=== PATIENT | female | born 1975 | race Caucasian/White ===

== ENCOUNTER 2020-04-27 19:29 | Emergency (ER) | payer BC ==
--- NOTE | 2020-04-27 19:46 | EDM.PDOC ---
ED HPI GENERAL MEDICAL PROBLEM - General Chief Complaint: Cardiovascular Problem Stated Complaint: TACHYCARDIA Time Seen by Provider: 04/27/20 19:46 Source of Information: Reports: Patient History Limitations: Reports: No Limitations - History of Present Illness INITIAL COMMENTS - FREE TEXT/NARRATIVE: Experience today normal day when you and forego than coming home relaxing. Watching a movie when noticed tachycardia/palpitations. Her states he could see it pulsating in her neck. Denies any chest pain or significant shortness of breath with this but felt pressure sensation. In review of [place] chart it is found only medication of current list on her last visit that she is currently taking is losartan hydrochlorothiazide 50/12.5 , 1/2 tablet daily. Lexapro has been discontinued as well as phentermine, states she has Xanax at home but has not used it. Also denies taking her calcium carbonate vitamin D in her multivitamin. Is noted abnormal TSH and elevated free T3 last August with no repeat on those tests found. Onset: Today, Sudden Duration: Minutes: Location: Reports: Chest Quality: Reports: Pressure Severity: Moderate Improves with: Reports: None Worsens with: Reports: None Associated Symptoms: Reports: No Other Symptoms Chest Pain Score (Numeric/FACES): 2 - Related Data Allergies Allergy/AdvReac Type Severity Reaction Status Date / Time No Known Drug Allergies Allergy Cannot Verified 04/27/20 19:43 Remember Home Meds: Home Meds Losartan/Hydrochlorothiazide [Losartan-HCTZ 50-12.5 MG] 1 tab PO DAILY 04/27/20 [History] Potassium Chloride 20 meq PO DAILY 30 Days #30 tablet.er 04/27/20 [Rx] Past Medical History HEENT History: Reports: None Cardiovascular History: Reports: Hypertension Respiratory History: Reports: None Gastrointestinal History: Reports: None Genitourinary History: Reports: None [employer]OR [employer] History: Reports: Endometrial Ablation Musculoskeletal History: Reports: None Psychiatric History: Reports: Anxiety Endocrine/Metabolic History: Reports: Hyperthyroidism Dermatologic History: Reports: None - Past Surgical History Female Surgical History: Reports: D&C Social & Family History - Family History Family Medical History: Noncontributory - Tobacco Use Smoking Status *Q: Never Smoker - Caffeine Use Caffeine Use: Reports: Soda - Alcohol Use Alcohol Use History: Yes Alcohol Use in Last Twelve Months: Yes ED ROS GENERAL - Review of Systems Review Of Systems: Comprehensive ROS is negative, except as noted in HPI. Constitutional: Reports: No Symptoms HEENT: Reports: No Symptoms Respiratory: Reports: No Symptoms Cardiovascular: Reports: No Symptoms Endocrine: Reports: No Symptoms GI/Abdominal: Reports: No Symptoms : Reports: No Symptoms Musculoskeletal: Reports: No Symptoms Skin: Reports: No Symptoms Neurological: Reports: No Symptoms Psychiatric: Reports: No Symptoms Hematologic/Lymphatic: Reports: No Symptoms Immunologic: Reports: No Symptoms ED EXAM, GENERAL - Physical Exam Exam: See Below Exam Limited By: No Limitations General Appearance: Alert, WD/WN, No Apparent Distress, Anxious Ears: Normal External Exam, Normal Canal Nose: Normal Inspection, Normal Mucosa, No Blood Throat/Mouth: Normal Inspection, Normal Lips, Normal Teeth, Normal Gums, Normal Oropharynx, Normal Voice, No Airway Compromise Head: Atraumatic, Normocephalic Neck: Normal Inspection, Supple, Non-Tender, Full Range of Motion. No: Carotid Bruit Respiratory/Chest: No Respiratory Distress, Lungs Clear, Normal Breath Sounds, No Accessory Muscle Use, Chest Non-Tender Cardiovascular: Normal Peripheral Pulses, Regular Rate, Rhythm, No Edema, No Gallop, No JVD, No Murmur, No Rub GI/Abdominal: Normal Bowel Sounds, Soft, Non-Tender, No Organomegaly, No Distention, No Abnormal Bruit, No Mass (Female) Exam: Deferred Rectal (Female) Exam: Deferred Back Exam: Full Range of Motion Extremities: Normal Inspection, Normal Range of Motion, Non-Tender, No Pedal Edema, Normal Capillary Refill Neurological: Alert, Oriented, CN II-XII Intact, Normal Cognition, Normal Gait, Normal Reflexes, No Motor/Sensory Deficits Psychiatric: Normal Affect, Normal Mood, Anxious Skin Exam: Warm, Dry, Intact, Normal Color, No Rash Lymphatic: No Adenopathy EKG INTERPRETATION EKG Date: 04/27/20 Time: 19:38 Rhythm: NSR Rate (Beats/Min): 110 [place]: Normal P-Wave: Present QRS: Normal ST-T: Normal QT: Normal Comparison: NA - No Prior EKG EKG Interpretation Comments: Sinus tachycardia with no evidence of infarct nor ischemia Course - Vital Signs Last Recorded V/S: Last Vital Signs Temp 36.3 C 04/27/20 19:40 Pulse 122 H 04/27/20 19:40 Resp 20 04/27/20 19:40 BP 142/72 H 04/27/20 19:40 Pulse Ox 99 04/27/20 19:40 - Orders/Labs/Meds Orders: Active Orders 24 hr Category Date Time Status EKG Documentation Completion [RC] ASDIRECTED Care 04/27/20 19:54 Ordered Peripheral IV Care [RC] . DIRECTED Care 04/27/20 19:52 Ordered Chest 1V Frontal [CR] Stat Exams 04/27/20 19:46 Ordered Sodium Chloride 0.9% [Normal Saline] 1,000 ml Med 04/27/20 20:00 Ordered IV ASDIRECTED Sodium Chloride 0.9% [Saline Flush] Med 04/27/20 19:52 Ordered 10 ml FLUSH Q8HR PRN Peripheral IV Insertion Adult [OM.PC] Routine Oth 04/27/20 19:52 Ordered EKG 12 Lead [EK] Stat Ther 04/27/20 19:53 Ordered Medication Orders Sodium Chloride (Normal Saline) 1,000 mls @ 999 mls/hr IV ASDIRECTED [facility] Last Admin: 04/27/20 19:56 Dose: 999 mls/hr Sodium Chloride (Saline Flush) 10 ml FLUSH Q8HR PRN PRN Reason: keep vein open Last Admin: 04/27/20 19:50 Dose: 10 ml Labs: Laboratory Tests 04/27/20 04/27/20 04/27/20 Range/Units 19:50 19:50 19:50 WBC 6.86 (5.00-10.00) 10^3/uL RBC 4.20 (3.80-5.50) 10^6/uL Hgb 11.8 L (12.0-16.0) g/dL Hct 33.6 L (37.0-47.0) % MCV 80.0 L (82.0-92.0) fL MCH 28.1 (27.0-31.0) pg MCHC 35.1 (32.0-36.0) g/dL RDW 12.2 (11.5-14.5) % Plt Count 294 (150-400) 10^3/uL MPV 10.3 (7.4-10.4) fL Immature Gran % (Auto) 0.1 (0.0-5.0) % Neut % (Auto) 59.1 (50.0-70.0) % Lymph % (Auto) 28.7 (20.0-40.0) % [place] % (Auto) 11.8 H (2.0-8.0) % Eos % (Auto) 0.0 L (1.0-3.0) % Baso % (Auto) 0.3 (0.0-1.0) % Neut # (Auto) 4.05 (2.50-7.00) 10^3/uL Lymph # (Auto) 1.97 (1.00-4.00) 10^3/uL [place] # (Auto) 0.81 H (0.10-0.80) 10^3/uL Eos # (Auto) 0.00 L (0.10-0.30) 10^3/uL Baso # (Auto) 0.02 (0.00-0.10) 10^3/uL Immature Gran # (Auto) 0.01 (0.00-0.50) 10^3/uL Sodium 141 (136-145) mmol/L Potassium 2.8 L (3.3-5.3) mmol/L Chloride 104 (98-115) mmol/L Carbon Dioxide 29.5 (21.0-32.0) mmol/L Anion Gap 10.3 (5-15) mmol/L BUN 15 (6-25) mg/dL Creatinine 0.53 (0.51-1.17) mg/dL Est Cr Clr Drug Dosing 154.69 mL/min Estimated GFR (MDRD) > 60 mL/min Glucose 124 H (75 - 99) mg/dL Calcium 8.9 (8.7-10.3) mg/dL Total Bilirubin 0.2 (0.2-1.0) mg/dL AST 24 (15-37) U/L ALT 40 (12-78) U/L Alkaline Phosphatase 82 (46-116) IU/L Troponin I 0.04 (0.00-0.070) ng/mL Total Protein 6.6 (6.4-8.2) g/dL Albumin 3.31 (3.00-4.80) g/dL TSH, Ultra Sensitive < 0.010 L (0.340-4.820) uIU/mL Meds: Medications Generic Name Dose Route Start Last Admin Trade Name Freq PRN Reason Stop Dose Admin Sodium Chloride 1,000 mls @ 999 mls/hr 04/27/20 20:00 04/27/20 19:56 Normal Saline IV 999 mls/hr ASDIRECTED CHRIS Administration Sodium Chloride 10 ml 04/27/20 19:52 04/27/20 19:50 Saline Flush FLUSH 10 ml Q8HR PRN Administration keep vein open Discontinued Medications Generic Name Dose Route Start Last Admin Trade Name Freq PRN Reason Stop Dose Admin Potassium Chloride 20 meq 04/27/20 20:57 Klor-Con 10 PO 04/27/20 20:58 ONETIME ONE Departure - Departure Time of Disposition: 21:09 Disposition: Home, Self-Care 01 Condition: Good Clinical Impression: Anxiety, PAC (premature atrial contraction), Hypokalemia, Tachycardia, Palpitations, Hyperthyroidism without thyroid nodule Prescriptions: Potassium Chloride 20 meq PO DAILY 30 Days #30 tablet.er Instructions: Hypertension, Adult, [id number], Potassium Content of Foods Referrals: Ashwin Quintana MICROFABRICATION ENGINEER MANAGER [Primary Care Provider] - Forms: ED Department Discharge Additional Instructions: 20 mEq potassium chloride has been prescribed for you at [facility]. You need to pick that up in the morning and take it daily. Take the 1 tablet we provided to you [facility] when you get home with something to eat. You need to contact endocrinology to follow-up on your low test level of TSH, similar to what was tested last fall at [place]. You need to contact the clinic and speak with Ashwin to get an appointment to follow-up with him in the next week to repeat your electrolyte panel as well as discuss considerations for Holter monitor/event monitor tracing. [facility] is likely due to your intake prior to arriving at the emergency department. Could also be evaluated on your next clinic appointment to follow-up. You may benefit by restarting your Lexapro to help control your anxiety which may be contributing to your palpitations/PAC's. Premature atrial complexes. Continue your blood pressure medicine as directed. Use your Xanax if you feel anxiety or a panic attack occurring. Call clinic or return to the emergency department if symptoms become severe prior to your follow-up appointments. Sepsis Event Note (ED) - Evaluation Sepsis Screening Result: No Definite Risk - Focused Exam Vital Signs: Vital Signs Temp Pulse Resp BP Pulse Ox 04/27/20 19:40 36.3 C 122 H 20 142/72 H 99 - Problem List & Annotations (1) Tachycardia SNOMED Code(s): 7177467 Code(s): R00.0 - TACHYCARDIA, UNSPECIFIED Status: Acute Current Visit: Yes (2) Anxiety SNOMED Code(s): 78327778 Code(s): F41.9 - ANXIETY DISORDER, UNSPECIFIED Status: Acute Current Visit: Yes (3) Palpitations SNOMED Code(s): 47910165 Code(s): R00.2 - PALPITATIONS Status: Acute Priority: High Current Visit: Yes (4) PAC (premature atrial contraction) SNOMED Code(s): 589201139 Code(s): I49.1 - ATRIAL PREMATURE DEPOLARIZATION Status: Acute Priority: Medium Current Visit: Yes (5) Hypokalemia SNOMED Code(s): 69809557 Code(s): E87.6 - HYPOKALEMIA Status: Acute Priority: High Current Visit : Yes (6) Hyperthyroidism without thyroid nodule SNOMED Code(s): 16366698 Code(s): E05.90 - THYROTOXICOSIS, UNSP WITHOUT THYROTOXIC CRISIS OR STORM Status: Chronic Priority: High Current Visit: Yes - Problem List Review Problem List Initiated/Reviewed/Updated: Yes - My Orders Last 24 Hours: My Active Orders 04/27/20 19:46 Chest 1V Frontal [CR] Stat 04/27/20 19:52 Peripheral IV Care [RC] . DIRECTED Sodium Chloride 0.9% [Saline Flush] 10 ml FLUSH Q8HR PRN Peripheral IV Insertion Adult [OM.PC] Routine 04/27/20 19:53 EKG 12 Lead [EK] Stat 04/27/20 19:54 EKG Documentation Completion [RC] ASDIRECTED 04/27/20 20:00 Sodium Chloride 0.9% [Normal Saline] 1,000 ml IV ASDIRECTED - Assessment/Plan Last 24 Hours: My Active Orders 04/27/20 19:46 Chest 1V Frontal [CR] Stat 04/27/20 19:52 Peripheral IV Care [RC] . DIRECTED Sodium Chloride 0.9% [Saline Flush] 10 ml FLUSH Q8HR PRN Peripheral IV Insertion Adult [OM.PC] Routine 04/27/20 19:53 EKG 12 Lead [EK] Stat 04/27/20 19:54 EKG Documentation Completion [RC] ASDIRECTED 04/27/20 20:00 Sodium Chloride 0.9% [Normal Saline] 1,000 ml IV ASDIRECTED Plan: 20 mEq potassium chloride has been prescribed for you at [facility]. You need to pick that up in the morning and take it daily. Take the 1 tablet we provided to you francisco when you get home with something to eat. You need to contact endocrinology to follow-up on your low test level of TSH, similar to what was tested last fall at [place]. You need to contact the clinic and speak with Ashwin to get an appointment to follow-up with him in the next week to repeat your electrolyte panel as well as discuss considerations for Holter monitor/event monitor tracing. Your blood sugar elevation on [facility] lab is likely due to your intake prior to arriving at the emergency department. Could also be evaluated on your next clinic appointment to follow-up. You may benefit by restarting your Lexapro to help control your anxiety which may be contributing to your palpitations/PAC's. Premature atrial complexes. Continue your blood pressure medicine as directed. Use your Xanax if you feel anxiety or a panic attack occurring. Call clinic or return to the emergency department if symptoms become severe prior to your follow-up appointments.
[2020-04-27] MEDS ORDERED: Sodium Chloride 0.9% 10 ML Syringe FLUSH PRN (19:52)
[2020-04-27] MEDS ORDERED: Sodium Chloride 0.9% 1,000 ML IV SCH (20:00)
[2020-04-27 20:36] LABS: ANION GAP 10.3 mmol/L (5-15); CHLORIDE,CL 104 mmol/L (98-115); SODIUM,NA 141 mmol/L (136-145)
[2020-04-27] MEDS ORDERED: Potassium Chloride 10 MEQ Tab.ER PO ONE (20:57)
== END 2020-04-27 21:20 | disposition home or self-care (01) ==
LOC: KA.ED 19:29
DX: I49.1 Atrial premature depolarization (principal); E87.6 Hypokalemia; R00.0 Tachycardia, unspecified; R00.2 Palpitations; F41.9 Anxiety disorder, unspecified; E05.90 Thyrotoxicosis, unspecified without thyrotoxic crisis or storm; I10 Essential (primary) hypertension; Z79.899 Other long term (current) drug therapy
CPT/HCPCS: 71045; 80053; 84443; 84484; 85025; 93005; 99285-25; J7030